=== PATIENT | female | born 2000 | race Caucasian/White ===

== ENCOUNTER → 2025-04-23 | Outpatient (CLI) | payer BC ==
[2025-04-23 11:59] LABS: Source, Urine Clean Catch
[2025-04-23 13:46] LABS: Bilirubin, Urine Neg (Neg); Glucose Qualitative, Urine Neg (Neg); Ketones, Urine Neg (Neg); Leukocyte Esterase, Urine 3+ (Neg); Protein, Urine Neg (Neg); Specific Gravity, Urine 1.005 (1.003-1.022); Urobilinogen, Urine NORM (Normal)
[2025-04-23 14:11] LABS: Color, Urine Pale Yellow (P-Yellow)
[2025-04-23 14:12] LABS: Red Blood Cells, Urine 0-2 /hpf (0-2)
[2025-04-23 14:58] LABS: Bacterial Vaginosis PCR Negative (NEGATIVE); Candida Group, PCR NOT DETECTED (NOT DETECT); Candida glabrata-krusei, PCR NOT DETECTED (NOT DETECT)
== END ==
LOC: LAB SHORT 11:54 → LAB 11:54
PROVIDERS: Family Medicine
DX: N76.0 Acute vaginitis (principal); R30.0 Dysuria
CPT/HCPCS: 81001; 81515; 87086